=== PATIENT | male | born 2000 | race Caucasian/White ===

== ENCOUNTER 2023-08-02 10:13 | Emergency (ER) | payer OTHER ==
[~2023-08-02] VITALS: Ht 167.6 cm; Wt 56.7 kg
[2023-08-02] MEDS ORDERED: CIPROFLOXACIN H10 ML OPH (11:36)
[2023-08-02] MEDS ORDERED: MELOXICAM15 MG PO (11:36)
== END 2023-08-02 11:42 | disposition home or self-care (01) ==
LOC: ED 10:13
DX: S63.501A Unspecified sprain of right wrist, initial encounter (principal); S01.111A Laceration without foreign body of right eyelid and periocular area, initial encounter; S09.90XA Unspecified injury of head, initial encounter; R07.81 Pleurodynia; F17.210 Nicotine dependence, cigarettes, uncomplicated; V13.4XXA Pedal cycle driver injured in collision with car, pick-up truck or van in traffic accident, initial encounter; Y93.I9 Activity, other involving external motion; Y92.410 Unspecified street and highway as the place of occurrence of the external cause; Y99.8 Other external cause status

== ENCOUNTER 2023-08-14 12:50 | Emergency (ER) | payer SELFPAY ==
[~2023-08-14] VITALS: Wt 54.4 kg
[~2023-08-14 12:50] MED LIST: CIPROFLOXACIN H10 ML OPH; MELOXICAM15 MG PO
[2023-08-14] MEDS ORDERED: CYCLOBENZAPRINE5 M3 PO (14:03)
== END 2023-08-14 14:18 | disposition home or self-care (01) ==
LOC: ED 12:50
DX: S29.011A Strain of muscle and tendon of front wall of thorax, initial encounter (principal); Z98.890 Other specified postprocedural states; V09.9XXA Pedestrian injured in unspecified transport accident, initial encounter; Y93.89 Activity, other specified; Y92.410 Unspecified street and highway as the place of occurrence of the external cause; Y99.8 Other external cause status